=== PATIENT | female | born 1975 | race Caucasian/White ===

== ENCOUNTER → 2023-05-05 07:41 | Outpatient (REF) | payer BC, SELFPAY ==
[2023-05-05 08:22] LABS: % Basophils 0.3 % (0-2); % Eosinophils 1.5 % (0-6); % Immature Granulocytes 0.3 % (0-0.5); % Lymphocytes 18.1 % (20.5-51.1); % Monocytes 5.4 % (1.7-9.3); % Neutrophils 74.4 % (42.2-75.2); Absolute Eosinophils 0.1 10^3/uL (0-0.7); Absolute Lymphocytes 1.1 10^3/uL (1.2-3.4); Absolute Monocytes 0.3 10^3/uL (0.1-0.6); Absolute Neutrophils 4.5 10^3/uL (1.4-6.5); Hemoglobin 12.9 g/dL (12.0-16.0); Mean Corp Hgb Conc. 35.8 g/dL (33.0-37.0); Mean Corpuscular Hgb 29.3 pg (27.0-31.0); Mean Corpuscular Volume 81.8 fL (81.0-99.0); Mean Platelet Volume 9.4 fL (7.4-10.4); Nucleated Red Blood Cells % 0.3 %; Platelet Count 252 10^3/uL (130-400); White Blood Cell Count 6.1 10^3/uL (4.8-10.8)
[2023-05-05 09:09] LABS: ALT (SGPT) 29 U/L (0-35); AST (SGOT) 27 U/L (14-36); Albumin 3.9 g/dl (3.5-5.0); Alkaline Phosphatase 72 U/L (38-126); Blood Urea Nitrogen 15 mg/dl (7-17); Calcium 9.3 mg/dl (8.4-10.2); Carbon Dioxide 22 mmol/L (22-30); Chloride 104 mmol/L (98-107); Glucose 94 mg/dl (70-99); Sodium 137 mmol/L (135-145); Total Bilirubin 0.6 mg/dl (0.2-1.3); Total Protein 6.9 g/dl (6.3-8.2); eGFR > 60.00
[2023-05-06 15:23] LABS: Prealbumin (Transthyretin) 25.8 mg/dl (17.6-36.0)
[2023-05-06 15:33] LABS: Vitamin D, 25-OH*** 17.5 ng/mL (30-80)
== END ==
LOC: RCS 07:41
PROVIDERS: ATTENDING PHYSICIAN Surgery Plastic and Reconstructive Surgery; FAMILY PHYSICIAN Family Medicine
DX: Z01.818 Encounter for other preprocedural examination (principal)
CPT/HCPCS: 36415; 80053; 82306; 84134; 85025; 93005

== ENCOUNTER → 2023-05-06 16:12 | Outpatient (REF) | payer BC, SELFPAY | LOC: MRI 3T 16:12 | PROVIDERS: ATTENDING PHYSICIAN Surgery; FAMILY PHYSICIAN Family Medicine; REFERRING PHYSICIAN Nurse Practitioner Family | DX: C50.412 Malignant neoplasm of upper-outer quadrant of left female breast (principal) | CPT/HCPCS: 77049; A9585 ==

== ENCOUNTER → 2023-05-11 08:01 | Outpatient (REF) | payer BC, SELFPAY | LOC: WDC 08:01 | PROVIDERS: ATTENDING PHYSICIAN Surgery | DX: C50.412 Malignant neoplasm of upper-outer quadrant of left female breast (principal) | CPT/HCPCS: 38792; 76942; A9541 ==

== ENCOUNTER 2023-05-12 06:04 | Day surgery (SDC) | payer BC, SELFPAY ==
[2023-05-12] VITALS (17 sets, daily range): BP systolic 5–143; BP diastolic 62–86; BMI 31.8
[2023-05-12] MEDS: TYLENOL 1000 MG PO ×3 (06:45→23:36)
[2023-05-12] MEDS: NORMOSOL-R 1000 IV (06:45)
--- NOTE | 2023-05-12 14:32 | W.IMMPOSTOP ---
Surgical Immed Post Op Note
-
Primary Surgeon: GEORGE Calvin MD
Assisting Surgeon:
Pre-op Diagnosis: Left breast cancer
Post-op Diagnosis: Same
Procedure Performed: Bilateral immediate reconstruction with tissue expanders, ADM insertion, spy angiography
Anesthesia Type: General
Specimen / Cultures: Per Dr. Pereira
Estimated Blood Loss: 10 cc
Complications: None
Operative Findings: As expected, expanders inflated 150 cc
--- NOTE | 2023-05-12 14:37 | OR.RPT ---
Operative Report
Operative Report
Surgeon: GEORGE Calvin MD
Preoperative diagnosis: Left breast cancer
Postoperative diagnosis: Same
Procedure:
1. Bilateral immediate insertion of tissue expanders for breast reconstruction
2. Insertion of ADM mesh, bilateral
3. Spy angiography
Complications: None
Anesthesia: General
EBL: 10 cc
Indications for procedure: Patient is a 47-year-old female was recently diagnosed with a left-sided breast cancer. She was referred by Dr. Pereira for consideration of reconstructive options following a plan for bilateral mastectomy. On
consultation we discussed both autologous and implant-based breast reconstruction. She desired a staged approach to D IEP flap reconstruction. In this pattern we will place tissue steam conditioner filling at the time of mastectomy and return at a later date
following final pathology and determination for the need for adjuvant radiation therapy to form the definitive reconstruction via D IEP flap surgery. Risks of steam conditioner filling based reconstruction reviewed at length including hematoma, seroma, infection.
She understood these risk desired to proceed. Consents were signed accordingly.
Procedure in detail: Patient was identified in the preoperative area and the surgical site was confirmed with bilateral breast. All questions were answered and consents were confirmed. The patient was sat upright and the normal anatomical markings
were made. A plan was made for vertical pattern skin sparing mastectomy bilaterally. Patient was taken back to the operating placed upon table. She was prepped and draped in the usual sterile fashion following induction of anesthesia. ChloraPrep
was used bilaterally. Timeout for patient safety was performed and was confirmed that preoperative antibiotics administered and bilateral SCDs were placed. Dr. Pereira began the procedure by first performing a right-sided mastectomy. Her op
report will be dictated separately.
I entered the case the right mastectomy had been completed and Dr. Pereira was working on the left breast. I inspected the mastectomy defect on the right chest wall and ensured meticulous hemostasis. I measured the base width indeterminate 13 cm
steam conditioner filling would be appropriate. The wound was thoroughly irrigated. An 8 x 16 cm piece of core TIVA ADM was opened and rehydrated and Betadine solution. It was run through a mesher at a 1:3 ratio. This was then draped over the steam conditioner filling in a total
anterior coverage fashion. The steam conditioner filling was inflated with 150 cc normal saline and was then sutured on the chest wall using series of 2-0 silks. A series of 2-0 Vicryl's suspended the ADM construct over the steam conditioner filling. 2 Héctor drains were placed
with a long subcutaneous tunnel in the periaxillary line. Tentative closure was performed and the skin edges were sharply excised with a facelift scissor. Spy angiography was then performed to confirm adequate perfusion of the mastectomy skin
flaps. The wound was then closed in 3 layers with a series of 3-0 and 4-0 Monocryl sutures. The exact same procedure was then performed on the left side after the mastectomy and sentinel nodes were complete. 13 cm steam conditioner filling was opened and the
wound bed was checked for meticulous hemostasis and irrigated. An 8 x 16 sheet of ADM was meshed 1:3 ratio and draped in total anterior coverage fashion. Construct was then affixed to the chest wall using 2-0 silks. Spy angiography was performed
and 2 Héctor drains were placed with a long subcutaneous tunnel. Wound was closed in 3 layers with 3-0 and 4-0 Monocryl. Patient tolerated procedure well was performed out complication. All counts were correct at the end the case. She was
extubated taken the PACU for further care.
[2023-05-12] MEDS: DILAUDID 0.25 MG IV ×2 (15:58→16:15)
--- NOTE | 2023-05-12 17:15 | PTCARENOTE ---
Pt received from the PACU via bed. Pt is AAOx3, HRR, LCTA, resp. easy. Pt with dressings to b/l breast area C/D/I, with Hero drains X4 and Surgical Bra maintained. Pt denies nausea and denies pain at this time. Pt instructed on plan of care. Pt and
Pt's verbalized understanding of instructions.
[2023-05-12] MEDS: NEURONTIN PO (17:43)
[2023-05-12] MEDS: ANCEF 5 IV (20:48)
[2023-05-12] MEDS: NEURONTIN 100 MG PO (20:49)
[2023-05-12] MEDS: ULTRAM 100 MG PO (20:55)
[2023-05-12] MEDS: COZAAR 50 MG PO (21:29)
[2023-05-13 03:00] VITALS: BP 128/61
[2023-05-13] MEDS: ANCEF 5 IV (03:10)
[2023-05-13] MEDS: FLUSH (NSS) 2 FLUSH IV (03:11)
[2023-05-13] MEDS: TYLENOL 1000 MG PO (06:11)
[2023-05-13 06:15] LABS: Hematocrit 31.6 % (37.0-47.0); Hemoglobin 10.9 g/dL (12.0-16.0)
[2023-05-13 06:37] LABS: Blood Urea Nitrogen 12 mg/dl (7-17); Calcium 8.2 mg/dl (8.4-10.2); Carbon Dioxide 22 mmol/L (22-30); Chloride 104 mmol/L (98-107); Estimated Creatinine Clearance > 125 ml/min; Glucose 95 mg/dl (70-99); Potassium 3.9 mmol/L (3.5-5.1); Sodium 136 mmol/L (135-145); eGFR > 60.00
[2023-05-13 07:01] VITALS: BP 119/73
[2023-05-13] MEDS: COLACE 100 MG PO (08:08)
[2023-05-13] MEDS: NEURONTIN 100 MG PO (08:08)
--- NOTE | 2023-05-13 09:37 | W.PN.PLAS ---
Today's Communication
-
Discharge to home with [facility]
Progress Note
Subjective Data
Doing well, pain well-controlled
Objective Data
Vital Signs
Temp Pulse Resp BP Pulse Ox
98.7 F 75 17 119/73 94
05/13/23 07:01 05/13/23 07:01 05/13/23 07:01 05/13/23 07:01 05/13/23 07:01
Intake and Output
05/12/23 05/13/23 05/14/23
06:59 06:59 06:59
Intake Total 840 / 840
Output Total 895 / 895
Balance -55 / -55
Intake:
Oral fluids 340 / 340
IV fluids (Total) 500 / 500
Normosol 500 / 500
Output:
Drain Output (Total) 270 / 270
Left Haris-See C 30 / 30
Left Haris-See D 140 / 140
Right Haris-See A 40 / 40
Right Haris-See B 60 / 60
Urine, Voided 625 / 625
Other:
Number of approximated MODERATE 2
amounts of urine
Number of approximated LARGE 1
amounts of urine
Physical exam:
No acute distress
No increased work of breathing
Bilateral dressings in place
No obvious fluid collections
RACQUEL drain serosanguineous
Lab Results
05/13/23 04:41
05/13/23 04:41
Assessment / Plan
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
Regular diet
Home with [facility]
Drain management
Follow-up next week in office
P.o. pain meds, oral antibiotics
--- NOTE | 2023-05-13 10:35 | CM ---
Chart reviewed. Spoke with pt and at bedside
Lives in 2 story home with and 2 daughters
Independent, drives
No DME
No past VNA/SNF
Has ride at d/c
Discussed VNA - requesting [facility]
TT sent to liaison
PCP - Dr Irma Curtis
Pharm - [facility]
Plan - home with home services - [facility]
--- NOTE | 2023-05-13 11:54 | VNURNOTE ---
Home Health Liaison met with patient and spouse Roberto at 1115 to discuss [facility] nurse visits, schedule and homebound status. Patient is agreeable and understands that visits at home will be 2-3 x per week to assess and teach medical management and
RACQUEL drain care. Patient and spouse have had some RACQUEL drain teaching here.
[facility] brochure provided with contact information. Patient is aware that [facility] will contact them for start of care in 1-2 days after discharge from .
[facility] referral completed in [facility].
== END 2023-05-13 11:14 | disposition home or self-care (01) ==
LOC: SDS 06:04
PROVIDERS: ATTENDING PHYSICIAN Surgery; REFERRING PHYSICIAN Surgery Plastic and Reconstructive Surgery
DX: C50.412 Malignant neoplasm of upper-outer quadrant of left female breast (principal)
CPT/HCPCS: 19357; 38525; 19303; 15777; 15860; 88305; 88307; 88332; 80048; 85014; 85018; 88331; 88342; C1729; C1789; L8000; Q4100

== ENCOUNTER → 2023-05-25 13:36 | Outpatient (REF) | payer BC, SELFPAY | LOC: HWRAD 13:36 | PROVIDERS: ATTENDING PHYSICIAN Surgery Plastic and Reconstructive Surgery; FAMILY PHYSICIAN Family Medicine | DX: Z42.1 Encounter for breast reconstruction following mastectomy (principal) | CPT/HCPCS: 74174; Q9967 ==

== ENCOUNTER 2023-06-09 06:04 | Inpatient (IN) | payer BC, SELFPAY ==
--- NOTE | 2023-05-12 13:50 | W.IMMPOSTOP ---
Surgical Immed Post Op Note
-
Primary Surgeon: Kelli
Assisting Surgeon: None
Pre-op Diagnosis: Left breast ca
Post-op Diagnosis: Same
Procedure Performed: Bilateral mastectomies, left sentinel node mapping and biopsy
Anesthesia Type: GET
Specimen / Cultures: Bilateral breasts, left superior breast tissue, left sentinel nodes
Estimated Blood Loss: 50cc
Complications: None
Operative Findings: Neg sentinel nodes on frozen section
Kennan Node Bx Breast Cancer
Kennan Node Bx Breast Cancer
Operation performed with curative intent: Yes
Tracer(s) to ID Kennan Nodes in Non-Neoadjuvant setting: Radioactive Tracer
Tracer(s) to ID Sentinal Nodes in the Neoadjuvant Setting: N/A
All nodes at end of dye-filled Lymphatic Channel removed: N/A
All Significantly Radioactive Nodes were removed: N/A
All Palpably Suspicious Nodes were Removed: N/A
Bx Proven Pos Nodes Marked Prior to Chemo ID'd & Removed: N/A
[2023-06-09] VITALS (20 sets, daily range): BP systolic 122–146; BP diastolic 57–90; BMI 31.1
[2023-06-09] MEDS: LOVENOX 40 MG SC (06:58)
[2023-06-09] MEDS: NORMOSOL-R 1000 IV ×2 (07:18→18:00)
--- NOTE | 2023-06-09 17:46 | OR.RPT ---
Operative Report
Operative Report
Surgeon: Junito Chua MD
Co-surgeon: Obed Calvin MD
Oil Dispatcher: Celsa Pereira MD
Pre-op diagnosis:
1.� Personal history of breast cancer
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
Postop diagnosis: Same
Procedure:
1.� Removal of bilateral tissue expanders
2.� Bilateral partial capsulectomies and extensive capsulotomies
3.� Bilateral breast reconstruction with LON flaps
4.� Bilateral internal mammary lymph node biopsies
5. Spy angiography
Anesthesia: General
EBL: 150 cc
Specimens:
1.� Right mastectomy skin and soft tissue
2.� Left mastectomy skin and soft tissue
3.� Right internal mammary lymph node
4.� Left internal mammary lymph node
Drains: 4 - 15 [place] Héctor drains
Complications: none
Indications:
48-year-old female with a past medical history significant for breast cancer.� She has previously undergone bilateral mastectomies and placement of tissue expanders in the prepectoral plane.� She presented for the next stage of her breast
reconstruction.� She was interested in moving forward with autologous reconstruction. Given the anticipated bilateral LON flap breast reconstruction, I was asked to be involved in her care given the complexity of the case and the need for a
co-surgeon to do this as safely and efficiently as possible.
Regarding bilateral free flap breast reconstruction,� she understood the nature of the surgery and all of the risk benefits alternatives were discussed at length.� Specific risks included flap failure or thrombosis, hematoma, seroma, poor wound
healing and compromise to the abdominal wall.� All questions were answered and consents were signed.
Operative findings:
Patient was identified in the preoperative area and consents were confirmed. The bilateral breast revisions were marked out as was the elliptical infraumbilical donor site. All questions were answered. She was brought to the operating room and
placed supine on the operative table.� General anesthesia was induced with an endotracheal tube. The arms were tucked bilaterally and a Lopez catheter was placed.� Preoperative Lovenox and antibiotics were administered, and SCDs were placed.� The
patient's bilateral breasts and abdomen were prepped and draped in normal standard fashion using chlorhexidine prep.� A timeout for patient safety was performed.
We initiated the procedure as two separate teams, with one surgeon working in the abdomen while the other surgeon was in the chest. Please see Dr. Calvin's separately dictated operative note.
On the left side of the chest, the previous mastectomy scar was incised.� Electrocautery dissection was then performed to get down to the level of the implant capsule.� The capsule was then opened and the heavy duty diesel mechanic was then removed intact.� Partial
capsulectomies and extensive capsulotomies were performed for radial expansion.� Next, the internal mammary dissection was performed.� The muscle was split over the third intercostal rib and the cartilaginous portion of the rib was excised.� The
underlying internal mammary vessels were then meticulously and carefully dissected.� Once the vessels were fully dissected circumferentially these were allowed to dilate up while attention was turned to the contralateral breast.� A pectoralis block
was then performed with marcaine and a 15 [place] Héctor drain was placed through a stab incision the lateral IMF.� This was secured using a 2-0 Prolene suture.
The identical procedure was then performed on the patient's right side.� Again this involved removal of the intact tissue heavy duty diesel mechanic, partial capsulectomies and extensive capsulotomies, rib resection, and internal mammary vessel dissection.� These
vessels were similarly prepared and allowed to dilate up with papaverine soaked neuro patties.� A pectoralis block was similarly performed on this side and a 15 [place] Héctor drain was also placed through a stab incision in the lateral IMF on the
side.
Of note, internal mammary lymph nodes were noted on both sides. These were dissected out and sent off for pathologic evaluation.
In the abdomen, bilateral LON flaps were dissected out. This began with incising the proposed markings superiorly and dissection with a slight bevel upwards to the level of the fascia. Undermining of the supraumbilical flap continue in the midline
above the umbilicus. Laterally, this extend near but not all the way to the costal margin. The patient was then flexed at the waist and the lower incision was confirmed to be tenable without undue tension. The patient was returned supine and the
lower marking was incised with a 10 blade. SIEVs were encountered bilaterally and dissected. The flaps were then raised laterally to medially be sure to maintain the perforating vessels above the level of the fascia.� On the right side a 4
binding cutter synthetic cloth LON flap was dissected out.� Similarly on the left side a 4 binding cutter synthetic cloth LON flap had been dissected out.�This involved a tedious intramuscular dissection to minimize the amount of muscle harvested with the flap. The pedicles were
dissected down to level of the iliac vessels.
The right hemiabdominal flap was then transferred up to the left chest.� The microvascular anastomosis was then performed.� This was done using a 4.0 mm ring barker operator for the venous anastomosis.� The arterial anastomosis was performed with a handsewn
technique using 8-0 nylon suture.� Upon removal of the microvascular clamps there was excellent perfusion of the flap.� The flap was then temporarily inset with robert and attention was turned to the contralateral side.
The left hemiabdominal flap was then transferred up to the right chest.� The microvascular anastomosis was similarly performed.� On this side a 4.0 mm ring barker operator was again utilized for the venous anastomosis.� The arterial anastomosis was performed in
the same fashion as the contralateral side.� Again there was excellent perfusion noted upon removal of the vascular clamps.
While one surgeon was performing the microvascular anastomosis the other surgeon was performing the abdominal wall reconstruction.� This involved reapproximation of the muscles that was divided.� A small piece of Phasix mesh was inset as a underlay
with primary fascial closure.� The fascia was closed with a PDS stratafix sutures.�A midline abdominal plication was also peformed due to the patient's rectus diastasis.
A TAP block was performed bilaterally for postoperative analgesia.� Two 15 [place] Héctor drains were placed in the abdomen.� These were similarly secured using 2-0 Prolene sutures.� The abdominal wall was then closed in a layered fashion.� 2-0 Vicryl
suture was utilized in the Merlyn's fascia.� The Insorb dermal stapler was then utilized for reapproximation of the deep dermis.� The superficial skin was then closed using 4-0 Monocryl suture.� The umbilicus was transposed.� This was inset using a
combination of 3-0 Monocryl in the deep dermis and 5-0 nylon suture superficially.
The LON flaps were then debulked due to their excessive volume and inset. The breast skin was then revised.� As the LON flaps were inset the breast skin had to be revised for the location of the skin paddle.� This was done by sitting the patient
up and in assuring appropriate location of the tracy-areolar complex.� The breast skin was then excised bilaterally and sent off for pathologic evaluation.� The skin was then closed in a layered fashion using 3-0 and 4-0 Monocryl suture.� The LON
flaps were de-epithelialized in all areas that would not be exposed prior to closure.
Doppler signals were identified on both skin islands and there was good punctate bleeding at time of deepithelialization. Signals were marked with 5-0 prolenes.
The wounds were then all dressed and the patient was extubated uneventfully.� All counts were correct at the the completion of the case.� The patient tolerated the procedure very well.� She had an excellent cosmetic outcome.� The patient was then
transferred to the ICU for postoperative� monitoring.
Dr. Waldemar Calvin was my co-surgeon for this case.� His status as a co-surgeon was critical to allow us to function as two separate teams to maximize the safety and efficiency of this case for this patient.
Dr. Celsa Pereira was our payroll assistant for this case.� Her assistance was critical and medically necessary to allow us to perform this in a safe and timely manner for this patient.� She assisted with retraction, execution, and closure of this case.
--- NOTE | 2023-06-09 18:02 | W.IMMPOSTOP ---
Surgical Immed Post Op Note
-
Primary Surgeon: GEORGE Calvin MD
Assisting Surgeon:
Pre-op Diagnosis: History of breast cancer, surgically acquired absence of bilateral breasts
Post-op Diagnosis: Same
Procedure Performed: Bilateral delayed immediate D IEP flap reconstruction, spy angiography, removal of bilateral tissue expanders and capsulectomy
Anesthesia Type: General
Specimen / Cultures: Right breast seroma fluid
Estimated Blood Loss: 150 cc
Complications: None
Operative Findings: Routine micro, well-perfused flaps
--- NOTE | 2023-06-09 18:02 | W.SUR.PREOP ---
Pre-Operative Surgical Note
-
I have examined this patient prior to the performance of the scheduled procedure.
The patient's condition is unchanged from the time of the current History and
Physical and the patient is able to undergo the scheduled procedure.
--- NOTE | 2023-06-09 18:02 | OR.RPT ---
Operative Report
Operative Report
Surgeon: Obed Calvin MD
Co-surgeon: Junito Chua MD
[employer] Teacher: Cesla Pereira MD
Pre-op diagnosis:
1.� Personal history of breast cancer
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
Postop diagnosis: Same
Procedure:
1.� Removal of bilateral tissue expanders
2.� Bilateral partial capsulectomies and extensive capsulotomies
3.� Bilateral breast reconstruction with LON flaps
4.� Bilateral internal mammary lymph node biopsies
5.� Spy angiography
Anesthesia: General
EBL: 150 cc
Specimens:
1.� Right mastectomy skin and soft tissue
2.� Left mastectomy skin and soft tissue
3.� Right internal mammary lymph node
4.� Left internal mammary lymph node
Drains: 4 - 15 Latvian Héctor drains
Complications: none
Indications:
48-year-old female with a past medical history significant for breast cancer.� She has previously undergone bilateral mastectomies and placement of tissue expanders in the prepectoral plane.� She presented for the next stage of her breast
reconstruction.� She was interested in moving forward with autologous reconstruction. Given the anticipated bilateral LON flap breast reconstruction, I asked my co-surgeon Dr. Junito Chua to be involved in her care given the complexity of the case
and the need for a co-surgeon to do this as safely and efficiently as possible.
Regarding bilateral free flap breast reconstruction,� she understood the nature of the surgery and all of the risk benefits alternatives were discussed at length.� Specific risks included flap failure or thrombosis, hematoma, seroma, poor wound
healing and compromise to the abdominal wall.� All questions were answered and consents were signed.
Operative findings:
Patient was identified in the preoperative area and consents were confirmed. The bilateral breast revisions were marked out as was the elliptical infraumbilical donor site. All questions were answered. She was brought to the operating room and
placed supine on the operative table.� General anesthesia was induced with an endotracheal tube. The arms were tucked bilaterally and a Lopez catheter was placed.� Preoperative Lovenox and antibiotics were administered, and SCDs were placed.� The
patient's bilateral breasts and abdomen were prepped and draped in normal standard fashion using chlorhexidine prep.� A timeout for patient safety was performed.
We initiated the procedure as two separate teams, with one surgeon working in the abdomen while the other surgeon was in the chest. Please see Dr. Chua's separately dictated operative note.
On the left side of the chest, the previous mastectomy scar was incised.� Electrocautery dissection was then performed to get down to the level of the implant capsule.� The capsule was then opened and the tail puller was then removed intact.� Partial
capsulectomies and extensive capsulotomies were performed for radial expansion.� Next, the internal mammary dissection was performed.� The muscle was split over the third intercostal rib and the cartilaginous portion of the rib was excised.� The
underlying internal mammary vessels were then meticulously and carefully dissected.� Once the vessels were fully dissected circumferentially these were allowed to dilate up while attention was turned to the contralateral breast.� A pectoralis block
was then performed with marcaine and a 15 Latvian Héctor drain was placed through a stab incision the lateral IMF.� This was secured using a 2-0 Prolene suture.
The identical procedure was then performed on the patient's right side.� Again this involved removal of the intact tissue tail puller, partial capsulectomies and extensive capsulotomies, rib resection, and internal mammary vessel dissection.� These
vessels were similarly prepared and allowed to dilate up with papaverine soaked neuro patties.� A pectoralis block was similarly performed on this side and a 15 Latvian Héctor drain was also placed through a stab incision in the lateral IMF on the
side.
Of note, internal mammary lymph nodes were noted on both sides. These were dissected out and sent off for pathologic evaluation.
In the abdomen, bilateral LON flaps were dissected out. This began with incising the proposed markings superiorly and dissection with a slight bevel upwards to the level of the fascia. Undermining of the supraumbilical flap continue in the midline
above the umbilicus. Laterally, this extend near but not all the way to the costal margin. The patient was then flexed at the waist and the lower incision was confirmed to be tenable without undue tension. The patient was returned supine and the
lower marking was incised with a 10 blade. SIEVs were encountered bilaterally and dissected. The flaps were then raised laterally to medially be sure to maintain the perforating vessels above the level of the fascia.� On the right side a 4
sewer pipe cleaner LON flap was dissected out.� Similarly on the left side a 4 sewer pipe cleaner LON flap had been dissected out.�This involved a tedious intramuscular dissection to minimize the amount of muscle harvested with the flap. The pedicles were
dissected down to level of the iliac vessels.
The right hemiabdominal flap was then transferred up to the left chest.� The microvascular anastomosis was then performed.� This was done using a 4.0 mm proration clerk for the venous anastomosis.� The arterial anastomosis was performed with a handsewn
technique using 8-0 nylon suture.� Upon removal of the microvascular clamps there was excellent perfusion of the flap.� The flap was then temporarily inset with robert and attention was turned to the contralateral side.
The left hemiabdominal flap was then transferred up to the right chest.� The microvascular anastomosis was similarly performed.� On this side a 4.0 mm proration clerk was again utilized for the venous anastomosis.� The arterial anastomosis was performed in
the same fashion as the contralateral side.� Again there was excellent perfusion noted upon removal of the vascular clamps.
While one surgeon was performing the microvascular anastomosis the other surgeon was performing the abdominal wall reconstruction.� This involved reapproximation of the muscles that was divided.� A small piece of Phasix mesh was inset as a underlay
with primary fascial closure.� The fascia was closed with a PDS stratafix sutures.�A midline abdominal plication was also performed due to the patient's rectus diastasis.
A TAP block was performed bilaterally for postoperative analgesia.� Two 15 Latvian Héctor drains were placed in the abdomen.� These were similarly secured using 2-0 Prolene sutures.� The abdominal wall was then closed in a layered fashion.� 2-0 Vicryl
suture was utilized in the Merlyn's fascia.� The Insorb dermal stapler was then utilized for reapproximation of the deep dermis.� The superficial skin was then closed using 4-0 Monocryl suture.� The umbilicus was transposed.� This was inset using a
combination of 3-0 Monocryl in the deep dermis and 5-0 nylon suture superficially.
The LON flaps were then debulked due to their excessive volume and inset. The breast skin was then revised.� As the LON flaps were inset the breast skin had to be revised for the location of the skin paddle.� This was done by sitting the patient
up and in assuring appropriate location of the tracy-areolar complex.� The breast skin was then excised bilaterally and sent off for pathologic evaluation.� The skin was then closed in a layered fashion using 3-0 and 4-0 Monocryl suture.� The LON
flaps were de-epithelialized in all areas that would not be exposed prior to closure.
Doppler signals were identified on both skin islands and there was good punctate bleeding at time of deepithelialization. Signals were marked with 5-0 prolenes.
The wounds were then all dressed and the patient was extubated uneventfully.� All counts were correct at the the completion of the case.� The patient tolerated the procedure very well.� She had an excellent cosmetic outcome.� The patient was then
transferred to the ICU for postoperative� monitoring.
Dr. Junito Chua was my co-surgeon for this case.� His status as a co-surgeon was critical to allow us to function as two separate teams to maximize the safety and efficiency of this case for this patient.
Dr. Celsa Pereira was our care assistant for this case.� Her assistance was critical and medically necessary to allow us to perform this in a safe and timely manner for this patient.� She assisted with retraction, execution, and closure of this case.
[2023-06-09] MEDS: DILAUDID 0.5 MG IV (18:33)
[2023-06-09] MEDS: TORADOL 15 MG IV (18:55)
--- NOTE | 2023-06-09 18:55 | PTCARENOTE ---
Rec'd pt at 1800 via bed directly back from the OR s/p bilateral LON procedure. Report received from OR staff. Rec'd pt drowsy but arousable. SIMMS. Speech is slow but clear. Admitted to 8/10 lower abd pain. Medicated at 1835 with Dilaudid 0.5 mg IV
and easing currently. Skin is pale pink wm and dry, Molina Hugger placed on medium setting on pt at 1820. Temp 97.8 Respirs are sl shallow but non-labored on 6l facemask with sats of 97%. BS are decreased throughout. Monitor SR. + pulses. Tr LE edema.
KH SCD's in place. VS as documented. ABd is round and soft with few hypoactive BS. No c/o nausea. ABd binder in place. Lopez intact for yellow urine. IV fluids Normosol currently via R hand #20 IV site. Will policy change clerk to LR at 125 ml/hr. Capped
#18 int intact R wrist. R and L breasts with soft swelling. Bilateral skin paddles are pale pink-'skin color' per who was in to see pt as well as Dr Calvin and Kelli. Paddles with refill <2 seconds. + doppler signals R signal weaker then
the L but both present. Paddles sl cool initally but warmer after Molina Hugger applied. Bilateral lower breast incisions approximated with surgical adhesive-no drainage. ABd over. Lower abd incison approximated with surgical adhesive present. No
drainage. R and L lower breast RACQUEL drains to bulb suction with sang drainage. R and L lower abd RACQUEL drains to bulb suction also draining sang drainage. Pt in Beach chair position. Call luis in reach. Plan of care reviewed with pt. Pulse and paddle
checks completed with oncoming shift.
[2023-06-09] MEDS: LR 1000 IV (18:56)
--- NOTE | 2023-06-09 19:00 | PTCARENOTE ---
ICU labs sent
[2023-06-09 19:14] LABS: Hematocrit 26.3 % (37.0-47.0); Hemoglobin 9.4 g/dL (12.0-16.0); Mean Corp Hgb Conc. 35.7 g/dL (33.0-37.0); Mean Corpuscular Volume 81.2 fL (81.0-99.0); Mean Platelet Volume 9.2 fL (7.4-10.4); Platelet Count 263 10^3/uL (130-400); Red Blood Cell Count 3.24 10^6/uL (4.20-5.40); Red Cell Dist. Width 12.1 % (11.5-14.5); White Blood Cell Count 6.6 10^3/uL (4.8-10.8)
[2023-06-09 19:25] LABS: INR 1.07
[2023-06-09 19:26] LABS: APTT 34.8 Sec (23.4-35.0)
[2023-06-09 19:28] LABS: ALT (SGPT) 22 U/L (0-35); AST (SGOT) 27 U/L (14-36); Albumin 3.6 g/dl (3.5-5.0); Alkaline Phosphatase 92 U/L (38-126); Blood Urea Nitrogen 11 mg/dl (7-17); Calcium 7.5 mg/dl (8.4-10.2); Carbon Dioxide 25 mmol/L (22-30); Chloride 102 mmol/L (98-107); Estimated Creatinine Clearance > 125 ml/min; Glucose 145 mg/dl (70-99); Potassium 4.2 mmol/L (3.5-5.1); Sodium 136 mmol/L (135-145); Total Bilirubin 0.4 mg/dl (0.2-1.3); Total Protein 6.2 g/dl (6.3-8.2); eGFR > 60.00
--- NOTE | 2023-06-09 21:15 | PTCARENOTE ---
~[id number]: Handoff report received from off goingRN. Dual RN breast paddle assessment completed. Pt's right breast flap doppler pulse is weak to medium and left breast flap doppler pulse is good. Flap sight is cool to the touch, pale to skin color.
Color okay with per off going RN. <2 capillary refill. Bilateral breast and abdominal RACQUEL drains to bulb suction and draining small amount of sanguineous output.Abd pads in place. Lower abdominal incision is approximated and with surgical adhesive
and abd pads. Molina hugger is set to medium. Plan of care for the shift reviewed with the patient. Sinus rhythm on the monitor. SpO2 at 98% on 6L simple mask o2. Diminished breast sounds. Abdomen is soft and round. Hypoactive BS. Abdominal binder in
place. Lopez catheter draining yellow uop. SCDs are in place.
2014- Patient placed on 6L O2 nasal cannula. SpO2 at 98%.
~2044: Pt's spouse, Roberto at the bedside.
[2023-06-09] MEDS: TYLENOL 1000 MG PO (22:00)
[2023-06-10] VITALS (26 sets, daily range): BP systolic 120–173; BP diastolic 60–91; BMI 31.5
[2023-06-10] MEDS: TORADOL 15 MG IV ×4 (00:04→17:16)
[2023-06-10] MEDS: ANCEF 10 IV ×3 (00:04→17:00)
[2023-06-10] MEDS: NEURONTIN 300 MG PO ×3 (00:04→17:00)
--- NOTE | 2023-06-10 00:51 | PTCARENOTE ---
Patient reassessed. Remains AAOx3 and drowsy. Breast paddle assessment as documented. Pt weaned off oxygen and SpO2 97% on room air. RACQUEL drains stripped and emptied. Sanguinous output. No further changes from previous assessment.
[2023-06-10] MEDS: LR 1000 IV (02:49)
[2023-06-10 03:51] LABS: Hematocrit 24.5 % (37.0-47.0); Hemoglobin 8.5 g/dL (12.0-16.0)
[2023-06-10 04:22] LABS: Blood Urea Nitrogen 12 mg/dl (7-17); Calcium 7.4 mg/dl (8.4-10.2); Carbon Dioxide 23 mmol/L (22-30); Chloride 106 mmol/L (98-107); Estimated Creatinine Clearance > 125 ml/min; Glucose 104 mg/dl (70-99); Potassium 3.9 mmol/L (3.5-5.1); Sodium 134 mmol/L (135-145); eGFR > 60.00
[2023-06-10] MEDS: CALCIUM GLUCONATE 100 IV (05:12)
--- NOTE | 2023-06-10 05:17 | PTCARENOTE ---
Patient reassessed. Pt receiving calcium gluconate for calcium 7.4.
VSS. Breast paddle assessment as document. No changes from previous assessment.
--- NOTE | 2023-06-10 06:00 | PTCARENOTE ---
pt's SpO2 91% on RA while asleep. placed on 2L/o2 nc. Spo2 97%.
--- NOTE | 2023-06-10 07:15 | CON.INTV ---
Consultation
Consultation Request
Date/Time Consultation Requested: 06/09/23
Date/Time Consultation Performed: 06/10/23
Performing Provider: Leonard
Medical History
-
History of Present Illness:
Patient is a 48-year-old female with previous history of left breast cancer status post bilateral mastectomies presenting for elective breast reconstruction. Underwent reconstruction with flap 06/09/2023 and postoperatively admitted to ICU for
frequent vascular monitoring of transplant. Perioperative course noted to be routine, not currently on pressors.
Past Medical History
Past Medical History: Other (see list below)
Social History
Tobacco: Non-smoker
Alcohol: None
Drug: None
Family History
Family History: Reviewed & Not Pertinent
Allergies / Home Medications
Allergies
Allergy/AdvReac Type Severity Reaction Status Date / Time
No Known Allergies Allergy Verified 06/09/23 07:01
Home Medications
Medication Instructions Recorded Confirmed Last Taken Type
losartan 50 mg tablet 50 mg PO HS Blood Pressure 05/10/23 06/09/23 06/08/23 19:00 History
oxcarbazepine 150 mg 150 mg PO HS Bipolar Disorder 05/10/23 06/09/23 06/07/23 History
tablet,extended release 24 hr
tirzepatide 2.5 mg/0.5 mL 2.5 mg SC QWEEK 05/10/23 06/09/23 04/29/23 History
subcutaneous pen injector
(Mounjaro)
acetaminophen 500 mg tablet (Pain 1,000 mg PO Q6 #90 tabs 05/13/23 06/09/23 06/08/23 19:00 Rx
Relief Extra Strength
(acetaminophen))
cefadroxil 500 mg capsule 500 mg PO BID #42 caps 05/13/23 06/09/23 06/08/23 19:00 Rx
gabapentin 100 mg capsule 100 mg PO TID 90 days #270 caps 05/13/23 06/09/23 06/08/23 19:00 Rx
Review of Systems
Vitals / Labs / Diagnostic Testing
Vital Signs
Temp Pulse Resp BP Pulse Ox
98.9 F 89 14 134/67 94
06/10/23 06:00 06/10/23 06:15 06/10/23 06:15 06/10/23 06:00 06/10/23 06:15
Lab Data
06/10/23 03:28
06/10/23 03:28
Laboratory Results
06/09/23
19:04
PT 14.0
INR 1.07
APTT 34.8
Microbiology
06/09/23 12:30 Breast - Right Gram Stain - Preliminary
Diagnostic Testing:
Physical Exam
-
HEENT: Normocephalic, Anicteric and Moist Mucous Membranes
Cardiovascular: S1/S2 and Regular Rhythm
Respiratory: Clear, Non-Labored Respirations and Other (chest tenderness at area of reconstruction)
GI: Soft, Non Distended and Tender
Neurology: Awake, Alert, Oriented, AO x 3 and No Motor Deficits
Skin: Warm, Dry and Good Color
General: Comfortable and Other (NAD)
Assessment
-
Patient is a 48-year-old female with previous history of left breast cancer status post bilateral mastectomies presenting for elective breast reconstruction. Underwent reconstruction with flap 06/09/2023 and postoperatively admitted to ICU for
frequent vascular monitoring of transplant.
Elective breast reconstruction s/p Removal of bilateral tissue expanders; Bilateral partial capsulectomies and extensive capsulotomies; Bilateral breast reconstruction with LON flaps
Bilateral internal mammary lymph node biopsies Dr Calvin 06/10/23
Postop anemia
Postop atelectasis
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
Malignant neoplasm of L breast
�ILC G2 [id number] ER/CT positive HER2 neg Ki-67 5%
s/p bilateral mastectomies, left sentinel lymph node mapping and biopsy and reconstruction with Dr. Calvin 05/12/23
Obesity BMI 31.5
HTN
Plan
S/p breast reconstruction by plastic surgery POD #1
Observe overnight following procedure
Follow CBC, neurovascular checks
Follow q1 blood flow monitoring to flap--requiring intensive monitoring post procedure
Notify surgical team if compromised
Avoid pressors
Bolus IVFs for hypotension
Pain control via CLAIMS SERVICE ADJUSTOR
Encouraged patient use prior to movement/PT
No prior h/o lung disease, nonsmoker
CXR with no acute disease/postop atelectasis noted
Encouraged IS, sats are stable on room air
Restart diet per protocol/advance as tolerated
GI ppx if indicated/history of GERD
DVT ppx held, SCDs
Creat at baseline, follow UO
No signs/symptoms suspicious for infectious etiology at this time.
Periop abx on board
Can likely observe off antibiotics if no longer indicated
Encourage OOB, early mobility
PT/OT
Incentive spirometer encouraged to prevent postoperative atelectasis
DVT ppx as indicated postop
SCDs
Monitor 48 hours, frequent vascular checks
If doing well, can transfer to floors with approval by primary team.
Diagnostic Data
Chest X-Ray: 06/10/23- Left basilar subsegmental atelectasis.
CT Scan: AP lung windows- LOWER CHEST: Lung bases clear. No pleural effusion. Partially imaged expanded within the inferior right chest wall with some surrounding fluid.
Echo:
PFT's:
Reports and relevant images were personally reviewed.
-----
Critical Care time 50 mins -- The patient is admitted for acute critical illness for the treatment of vital organ failure and/or prevention of further life-threatening conditions. Total care includes time spent in review of history, physical exam,
medications, hemodynamic/ventilator parameters, laboratory data, imaging and discussion with house staff, pharmacy, respiratory therapy, fire claims adjuster, and nursing.
[2023-06-10] MEDS: TYLENOL 1000 MG PO ×4 (08:22→21:16)
[2023-06-10] MEDS: COLACE 100 MG PO ×3 (08:22→21:11)
[2023-06-10] MEDS: SENOKOT 8.59999999999999964 MG PO ×2 (08:22→21:11)
--- NOTE | 2023-06-10 09:00 | PTCARENOTE ---
Rec'd pt at 0730 sleeping. Easily awakened and is alert and oriented. Overall states she was able to sleep and is very comfortable. SIMMS. Speech is clear. Skin is pale pink wm and dry. Molina Hugger in place set on medium. Beach chair position
maintained in bed. Respirs are unlabored initallly on 2l nc with sats of 97%- changed to RA at 0830 with sats of 95%. BS are decreased at the bases. Using IS and getting 1500 mls. Monitor SR. + pulses. Tr LE edema. KH SCD's in place. ABd is sl
tender to palp with hypoactive BS. Denies nausea. Lopez intact for yellow urine- amts as noted. Bilateral breast incisions are approximated with no drainage. Surgical adhesive present with dry ABD lying over incisions. R breast with some ecchymosis
of breast tissue and sl ecchymosis of breast paddle. + doppler signal and breast/paddle is warm. L breast tissue is pink. Paddle is pink and warm with + doppler signal. Both breasts are softly swollen. Transverse lower abd incision is approximated
with surgical adhesive and dry abd's lying over. Umbilical incison also approximated with dry abd. ABD binder in place. Bilateral lower breast and bilateral Lower abd RACQUEL drains to bulb suction. Stripped and reactivated per md order. Draining
sang-serosang drainage. Amts as documented. IV LR infusing via R hand IV site at 125 mls/hr. Capped int intact R wrist. Both sites wnl. Pt repositioned and ready to eat clear liquid breakfast. Call luis in reach and plan of care reviewed with pt.
--- NOTE | 2023-06-10 09:40 | PTCARENOTE ---
Dr. Calvin in to see pt and updated. Plan of care for the day reviewed. Good appetite for breakfast. No nausea.
[2023-06-10] MEDS: ULTRAM 100 MG PO ×2 (10:45→18:14)
--- NOTE | 2023-06-10 11:10 | PTCARENOTE ---
Pt resting this morning. Overall states she feels good although did admit to 5/10 bilat breast soreness. Flap and breast checks as documented and unchanged. Medicated with Tramadol 100 mg po in anticipation of getting oob. VS as documented. Complete
CHG bath given. Ruby care given and then enamorado dc'd per md order at 1100 . IV fluids capped currently as current bag has finished. Molina Hugger removed at [address] Nikunj nuñez to remove and just use blankets. RACQUEL drains with serosang drainage. Pt
then assisted oob to the chair maintaining beach chair position. Call luis in reach. at the bedside. Lunch ordered. Will continue to monitor
--- NOTE | 2023-06-10 11:17 | CM ---
CM following re: discharge planning.
Discussed in Rounds, reviewed pt's chart, met with pt and pt's Khari at bedside.
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
Pt reports she lives with in a 2SH, 2 steps to enter, has 2 supportive children. 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 No DME, VN or SNF history. Pt reports she had [facility] visits in the past and she asked to resume [facility] RN
visits upon the discharge.
CM consult to arrange VN services with a request to have RN visit next day of discharge is noted. Pt referred to [facility], spoke to [facility] liaison and she is aware of the requested RN visit next day of discharge.
PCP: Leodan Curtis
Pharmacy: [facility].
D/C plan: home with [facility] RN visit next day of discharge and family support. to transport at discharge.
CM will follow with discharge plan updates as hospitalization progresses
[2023-06-10] MEDS: FLUSH (NSS) 1 FLUSH IV (12:45)
--- NOTE | 2023-06-10 13:30 | PTCARENOTE ---
Good appetite for lunch. No c/o nausea. States she feels comfortable. States earlier Tramadol helped the breast soreness. VS as documented. Denies need to void yet. R breast paddle with slightly more ecchymosis but paddle is warm with a good signal.
R breast with some ecchymosis and a small amt on the L breast. Dr. Palacios updated in general on pt. Will continue to monitor
[2023-06-10] MEDS: LR IV (13:41)
--- NOTE | 2023-06-10 14:18 | W.PN.PLAS ---
Today's Communication
-
Flap Pathway POD1
Progress Note
Subjective Data
Doing well, pain well-controlled, denies shortness of breath
Objective Data
Vital Signs
Temp Pulse Resp BP Pulse Ox
99.7 F 93 18 142/76 95
06/10/23 11:32 06/10/23 12:00 06/10/23 12:00 06/10/23 12:00 06/10/23 12:00
Intake and Output
06/09/23 06/10/23 06/11/23
06:59 06:59 06:59
Intake Total 2025 / 2150 1625 / 1625
Output Total 1619 / 1654 480 / 480
Balance 406 / 496 1145 / 1145
Intake:
Oral fluids 450 / 450 1000 / 1000
IV fluids (Total) 1475 / 1600 625 / 625
Lr 1,000 ml @ 125 mls/hr IV . 1375 / 1500 625 / 625
Q8H [facility] Rx#:[id number]
Normosol 100 / 100
IV piggybacks 100 / 100
Output:
Drain Output (Total) 230 / 230 75 / 75
Left Lower Abdomen B 30 / 30 15 / 15
Left Lower Breast A 95 / 95 20 / 20
Right Lower Abdomen D 60 / 60 15 / 15
Right Lower Breast C 45 / 45 25 / 25
Urine, Lopez 1389 / 1424 405 / 405
Physical exam:
No acute distress
No increased work of breathing
Bilateral breast flaps warm and well-perfused in appearance
Doppler signals intact arterial and venous bilaterally
Appropriate cap refill no evidence of venous congestion
Routine incisional healing
RACQUEL drain serosanguineous with appropriate output
Lab Results
06/10/23 03:28
06/10/23 03:28
Microbiology Results
06/09/23 12:30 Breast - Right Anaerobic Culture - Preliminary
Culture pending. Anaerobic cultures are examined after 3
days incubation. Additional information to follow.
06/09/23 12:30 Breast - Right Wound Culture - Preliminary
No growth
06/09/23 12:30 Breast - Right Gram Stain - Preliminary
Assessment / Plan
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
Lopez out
Multimodal oral pain control
Regular diet
Lovenox/SCDs
Out of bed to chair
--- NOTE | 2023-06-10 15:00 | PTCARENOTE ---
Assisted back to bed. Tolerated being oob well. Breast sites unchanged. R breast overall is more swollen than the left. Dr Calvin aware and expected. Voided yellow urine on the commode. Will continue to monitor.
--- NOTE | 2023-06-10 16:04 | VNURNOTE ---
Home Health Liaison met with patient at 1500 to discuss [facility] nurse visits, schedule and homebound status. Patient is agreeable and understands that visits at home will be 2-3 x per week to assess and teach medical management and drain care.
[facility] brochure provided with contact information. Patient is aware that [facility] will contact her for start of care in 1-2 days after discharge from .
[facility] referral completed in Care Port
[2023-06-10] MEDS: LOVENOX 40 MG SC (17:16)
--- NOTE | 2023-06-10 20:00 | PTCARENOTE ---
brim presser, pt aao x 3, SIMMS, + doppler to breast paddles, q1 hr checks continue- full documentation per work list. RACQUEL drains x 4 WNL. SR HR 90s, RA Sat 96%. RA IV x 2 patent, no gtt infusing. POC discussed, call luis with patient.
[2023-06-10] MEDS: COZAAR 50 MG PO (21:11)
[2023-06-10] MEDS: TRILEPTAL 150 MG PO (21:12)
[2023-06-11] VITALS (26 sets, daily range): BP systolic 107–166; BP diastolic 67–98; PULSE 100; O2SAT 95; BMI 31.6
--- NOTE | 2023-06-11 | PTCARENOTE ---
Reassessed, ax1 to commode, q1 doppler breast checks unchanged, pt has some discomfort with movement- midnight meds given, no changes.
[2023-06-11] MEDS: TORADOL 15 MG IV ×4 (00:24→23:55)
[2023-06-11] MEDS: NEURONTIN 300 MG PO ×4 (00:24→23:57)
[2023-06-11] MEDS: ULTRAM 100 MG PO ×3 (01:08→16:30)
--- NOTE | 2023-06-11 04:00 | PTCARENOTE ---
no changes in patient assessment.
[2023-06-11] MEDS: TORADOL IV (05:45)
[2023-06-11 06:06] LABS: Hematocrit 25.4 % (37.0-47.0); Hemoglobin 8.9 g/dL (12.0-16.0); Mean Corpuscular Volume 82.7 fL (81.0-99.0); Platelet Count 256 10^3/uL (130-400); Red Blood Cell Count 3.07 10^6/uL (4.20-5.40); Red Cell Dist. Width 12.2 % (11.5-14.5); White Blood Cell Count 7.1 10^3/uL (4.8-10.8)
[2023-06-11 06:39] LABS: Blood Urea Nitrogen 13 mg/dl (7-17); Calcium 8.1 mg/dl (8.4-10.2); Carbon Dioxide 24 mmol/L (22-30); Chloride 101 mmol/L (98-107); Estimated Creatinine Clearance > 125 ml/min; Glucose 105 mg/dl (70-99); Potassium 3.9 mmol/L (3.5-5.1); Sodium 134 mmol/L (135-145); eGFR > 60.00
--- NOTE | 2023-06-11 07:13 | W.PN.INTV ---
Today's Communication / Plan
Recommendations
doing well postop
continue q1 vascular monitoring
diet advanced, PT/OT as able
discharge planning likely in AM
Assessment
-
Patient is a 48-year-old female with previous history of left breast cancer status post bilateral mastectomies presenting for elective breast reconstruction. Underwent reconstruction with flap 06/09/2023 and postoperatively admitted to ICU for
frequent vascular monitoring of transplant.
Elective breast reconstruction s/p Removal of bilateral tissue expanders; Bilateral partial capsulectomies and extensive capsulotomies; Bilateral breast reconstruction with LON flaps
Bilateral internal mammary lymph node biopsies Dr Calvin 06/10/23
Postop anemia
Postop atelectasis
Conditions present [employer]
Malignant neoplasm of L breast
�ILC G2 [id number] ER/AZ positive HER2 neg Ki-67 5%
s/p bilateral mastectomies, left sentinel lymph node mapping and biopsy and reconstruction with Dr. Calvin 05/12/23
Obesity BMI 31.5
HTN
Plan
S/p breast reconstruction by plastic surgery POD #2
Observe overnight following procedure
Follow CBC, neurovascular checks
Follow q1 blood flow monitoring to flap--requiring intensive monitoring post procedure
Notify surgical team if compromised
Avoid pressors
Bolus IVFs for hypotension
Pain control via GRIEVANCE AND APPEALS COORDINATOR
Encouraged patient use prior to movement/PT
No prior h/o lung disease, nonsmoker
CXR with no acute disease/postop atelectasis noted
Encouraged IS, sats are stable on room air
Restart diet per protocol/advance as tolerated
GI ppx if indicated/history of GERD
DVT ppx held, SCDs
Creat at baseline, follow UO
No signs/symptoms suspicious for infectious etiology at this time.
Periop abx on board
Can likely observe off antibiotics if no longer indicated
Encourage OOB, early mobility
PT/OT
Incentive spirometer encouraged to prevent postoperative atelectasis
DVT ppx as indicated postop
SCDs
Monitor 48 hours, frequent vascular checks
If doing well, can likely discharge tomorrow
Diagnostic Data
Chest X-Ray: 06/10/23- Left basilar subsegmental atelectasis.
CT Scan: AP lung windows- LOWER CHEST: Lung bases clear. No pleural effusion. Partially imaged expanded within the inferior right chest wall with some surrounding fluid.
Echo:
PFT's:
Reports and relevant images were personally reviewed.
-----
Critical Care time 32 mins -- The patient is admitted for acute critical illness for the treatment of vital organ failure and/or prevention of further life-threatening conditions. Total care includes time spent in review of history, physical exam,
medications, hemodynamic/ventilator parameters, laboratory data, imaging and discussion with house staff, pharmacy, respiratory therapy, front facer, and nursing.
Subjective Dataa
Subjective Data
Date of Service:
Date of Service: June 11, 2023
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
Subjective:
doing well post procedure, no new complaints
pain controlled
Objective Data
Data Reviewed
Vital Signs / I&O / Oxygen:
Vital Signs
Temp Pulse Resp BP Pulse Ox
99.9 F 108 19 166/83 93
06/11/23 04:00 06/11/23 06:30 06/11/23 06:30 06/11/23 06:01 06/11/23 06:30
Intake and Output
06/10/23 06/11/23 06/12/23
06:59 06:59 06:59
Intake Total 2024 / 2149 2605 / 2605
Output Total 1619 / 1654 1798 / 1798
Balance 406 / 496 807 / 807
SaO2 93
Nasal Cannula flow liters per 2
minute
Physical Exam
General: Comfortable and Other (NAD)
HEENT: Normocephalic, Anicteric and Moist Mucous Membranes
Cardiovascular: S1-S2 and Regular Rhythm
Respiratory: Clear and Non-Labored Respirations
GI: Soft, Non Distended and Tender (at incision)
Neurology: Awake, Alert, Oriented, AO x 3 and No Motor Deficits
Skin: Warm, Dry and Good Color
Labs/Micro/Reports
Lab Data
06/11/23 05:37
06/11/23 05:37
Microbiology
06/09/23 12:30 Breast - Right Anaerobic Culture - Preliminary
Culture pending. Anaerobic cultures are examined after 3
days incubation. Additional information to follow.
06/09/23 12:30 Breast - Right Wound Culture - Preliminary
No growth
06/09/23 12:30 Breast - Right Gram Stain - Preliminary
[2023-06-11] MEDS: TYLENOL 1000 MG PO ×4 (08:59→22:00)
[2023-06-11] MEDS: SENOKOT 8.59999999999999964 MG PO ×2 (08:59→20:10)
[2023-06-11] MEDS: COLACE 100 MG PO ×3 (08:59→22:01)
--- NOTE | 2023-06-11 09:00 | W.PN.PLAS ---
Today's Communication
-
Free flap pathway postop day 2
Progress Note
Subjective Data
Doing well denies shortness of breath, pain well-controlled
Subjective: Tolerating Regular Diet, Ambulatory and Lopez Removed
Objective Data
Vital Signs
Temp Pulse Resp BP Pulse Ox
98.1 F 98 18 156/93 96
06/12/23 07:52 06/12/23 06:00 06/12/23 06:00 06/12/23 06:00 06/12/23 06:00
Intake and Output
06/11/23 06/12/23 06/13/23
06:59 06:59 07:59
Intake Total 2605 / 2605 1400 / 1400
Output Total 1798 / 1798 758 / 758
Balance 807 / 807 642 / 642
Intake:
Oral fluids 1780 / 1780 1400 / 1400
IV fluids (Total) 625 / 625
Lr 1,000 ml @ 125 mls/hr IV . 625 / 625
Q8H [facility] Rx#:[id number]
IV piggybacks 200 / 200
Output:
Drain Output (Total) 368 / 368 208 / 208
Left Lower Abdomen B 65 / 65 42 / 42
Left Lower Breast A 120 / 120 65 / 65
Right Lower Abdomen D 150 / 150 90 / 90
Right Lower Breast C 33 / 33 11 / 11
Urine, Lopez 405 / 405
Urine, Voided 1025 / 1025 550 / 550
Other:
Number of approximated MODERATE 1
amounts of urine
Number of approximated LARGE 1
amounts of urine
Physical exam:
No acute distress
No increased work of breathing
Bilateral breast flaps warm and well-perfused in appearance
Doppler signals intact arterial and venous bilaterally
Appropriate cap refill no evidence of venous congestion
Routine incisional healing
RACQUEL drain serosanguineous with appropriate output
Lab Results
06/12/23 03:09
06/12/23 03:09
Microbiology Results
06/09/23 12:30 Breast - Right Anaerobic Culture - Preliminary
Culture pending. Anaerobic cultures are examined after 3
days incubation. Additional information to follow.
06/09/23 12:30 Breast - Right Wound Culture - Preliminary
No growth
06/09/23 12:30 Breast - Right Gram Stain - Preliminary
Assessment / Plan
Status post bilateral tissue director of agronomy removal with delayed immediate LON flap reconstruction of the bilateral breasts, history of breast cancer
Anemia secondary to hemodilution and postsurgical blood loss. No evidence of ongoing bleeding.
Lopez out
Multimodal oral pain control
Regular diet
Lovenox/SCDs
Out of bed to ambulate
PT OT
Continue every hour flap checks for 48 hours postop
--- NOTE | 2023-06-11 09:00 | PTCARENOTE ---
Rec'd pt at 0700- -Breast flap checks completed with offgoing nurse. Rec'd pt awake alert oriented and very pleasant. States overall she feels good but did admit to headache and 3-4/10 breast soreness. Medicated at 0720 with Tramadol 100 mg po with
some relief. Speech is clear. SIMMS. Beach chair position maintained and pt aware of positioning restricitons. Skin is pink wm and dry. Respirs are unlabored on RA with sats of 94%. BS are sl decreased at the bases. Encouraged to use IS-getting about
1500. No cough noted. Monitor ST 105-108 range. + pulses. BP as documented.-OK to use R arm. Tr LE Edema. KH SCD's in place. ABd is round and soft. Pt does admit to feeling a little bloated as she states she has not moved her bowels yet. Voiding
yellow urine on the commode. Bilateral lower breast RACQUEL drains and Bilateral lower abd drains to bulb suction. Stripped per orders and draining serosang drainage. Breasts- R breast remains sl more swollen than the L but both are soft and pink. Sl
bruising. Breast paddles are pink and warm bilaterally with refill <2 sec. Good doppler signals. Bilateral lower breast and lower abd incisons are all approximated with ABD's lying over. No drainage. ABD binder in place. Capped ints intact R wrist
and R hand. Pt assisted oob with assist of 1 to the commode then the chair. Did own oral care and currently wants to wait to eat breakfast. Call luis in reach. Plan of care reviewed.
--- NOTE | 2023-06-11 11:00 | PTCARENOTE ---
Worked with physical therapy and ambulated in the [place]uniga. Clarified with Dr. Calvin- pt can do stairs and can use arms if needed but would prefer her to focus on using her legs to transfer as to avoid too much pressure on the pectoralis muscle.
Currently resting back in bed. Expressed that she felt good walking. Family at beside. Voiding in the commode. Breast flap sites unchanged
[2023-06-11] MEDS: FLUSH (NSS) 1 FLUSH IV ×2 (12:22→18:09)
--- NOTE | 2023-06-11 13:15 | PTCARENOTE ---
Ate lunch. Pt then assisted into the bathroom to urinate. After assisted back to bed and complete CHG bath given. Breast flap checks unchanged. ABD binder readjsted and new ABD's placed over abd and breast incisions under abd binder. All incisions
are approximated. Pt states she feels good and wants to take a nap. Will monitor.
--- NOTE | 2023-06-11 14:49 | CM ---
CM following re: discharge planning.
Discussed in Rounds, reviewed pt's chart. Per Rounds meeting, pt doing well postop and probably will be discharged tomorrow.
[facility] liaison is aware of pt's potential discharge tomorrow and [facility]N visit will be scheduled for Wednesday
Please fax discharge instructions to [facility] at [phone]
D/C plan: home on Wednesday06/12/23 with [facility] and family support
CM will follow wit discharge plan updates as hospitalization progresses
--- NOTE | 2023-06-11 16:35 | PTCARENOTE ---
Back oob to the bathroom. States she feels like soon she will have a BM. Is passing flatus. Breast/paddle checks are unchanged. (+) signals. [place] and wm to touch. Ecchymosis improving. Swelling remains but lessened. Respirs are unlabored. RA sats
are 96%. Monitor SR. VS as documented. Voiding in the toilet. Admits to 5/10 Breast soreness- Remedicated with Tramadol 100 mg po for breast soreness. Also admits to a headache but says it is better than earlier. Currently resting back oob in the
chair.
[2023-06-11] MEDS: LOVENOX 40 MG SC (18:08)
--- NOTE | 2023-06-11 18:30 | PTCARENOTE ---
Good appetite for dinner. No BM yet. Informed her to let us know if she wants something else for her bowels. Of note on her R breast- not the flap but near the flap on a previously ecchymotic area there is a small blister formation. Paddles are warm
and signals/ color good. Will update Dr. Calvin. No other changes. Remains oob.
--- NOTE | 2023-06-11 21:37 | PTCARENOTE ---
1900: Handoff report received from off going RN. Dual RN breast paddle completed. Doppler pulses to b/l paddle is good, skin is warm. Right breast has mild ecchymosis with a blister. Abd pads are intact and dry. lower abdominal incision is cdi and
approximated. Abdominal pads and binder are in use. Bilateral breast RACQUEL and lower abd RACQUEL drains are intact and draining serosanguineous output. Pt's OOb to chair. Spouse at the bedside.
[id number]: Patient assisted out of the chair to the bathroom. The patient had a medium BM. Pt's AAOx4 and pleasant. Plan of care for the remainder of the shift reviewed with the patient. Sinus rhythm on the monitor. Pt's afebrile. Diminished breath
sounds to bases. SpO2 at 96% on room air. IS max at 1750 ml. Patient encouraged to continue using IS. +BS. Protective sacral foam is intact. Pt assisted back to bed. All needs are met at this time. Safety measures maintained. Bed in the lowest
position. Call luis and personal belongings are within reach.
[2023-06-11] MEDS: COZAAR 50 MG PO (22:01)
[2023-06-11] MEDS: TRILEPTAL 150 MG PO (22:02)
[2023-06-12] VITALS (8 sets, daily range): BP systolic 108–156; BP diastolic 68–99; BMI 31.3
--- NOTE | 2023-06-12 00:27 | PTCARENOTE ---
Patient reassessed. Hero drains to bulb suction and continued to drain serosang. output. Drains stripped. Pt asleep between care but arouses to voice commands. VSS. Safety measures continued. NO changes from the previous assessment.
[2023-06-12 03:28] LABS: Hematocrit 24.6 % (37.0-47.0); Hemoglobin 8.5 g/dL (12.0-16.0); Mean Corp Hgb Conc. 34.6 g/dL (33.0-37.0); Mean Corpuscular Hgb 29.2 pg (27.0-31.0); Mean Corpuscular Volume 84.5 fL (81.0-99.0); Mean Platelet Volume 9.2 fL (7.4-10.4); Platelet Count 242 10^3/uL (130-400); Red Blood Cell Count 2.91 10^6/uL (4.20-5.40); Red Cell Dist. Width 12.1 % (11.5-14.5); White Blood Cell Count 6.7 10^3/uL (4.8-10.8)
[2023-06-12 03:42] LABS: Blood Urea Nitrogen 13 mg/dl (7-17); Calcium 8.3 mg/dl (8.4-10.2); Carbon Dioxide 27 mmol/L (22-30); Chloride 103 mmol/L (98-107); Estimated Creatinine Clearance > 125 ml/min; Glucose 93 mg/dl (70-99); Potassium 3.9 mmol/L (3.5-5.1); Sodium 134 mmol/L (135-145); eGFR > 60.00
[2023-06-12] MEDS: ULTRAM 100 MG PO ×2 (04:16→08:24)
--- NOTE | 2023-06-12 04:23 | PTCARENOTE ---
Patient reassessed. c/o 4-5/10 pain to her lower abdomen and breast. PRN tramadol administered. multiple warm blankets applied and room temperature increased for chills. Temp 98.9. VSS. All needs are met at this time. call luis is within reach.
[2023-06-12] MEDS: TORADOL 15 MG IV (06:05)
--- NOTE | 2023-06-12 07:15 | W.PN.INTV ---
Today's Communication / Plan
Recommendations
Doing well postop, stable
Discharge planning per team
Assessment
-
Patient is a 48-year-old female with previous history of left breast cancer status post bilateral mastectomies presenting for elective breast reconstruction. Underwent reconstruction with flap 06/09/2023 and postoperatively admitted to ICU for
frequent vascular monitoring of transplant.
Elective breast reconstruction s/p Removal of bilateral tissue expanders; Bilateral partial capsulectomies and extensive capsulotomies; Bilateral breast reconstruction with LON flaps
Bilateral internal mammary lymph node biopsies Dr Calvin 06/10/23
Postop anemia
Postop atelectasis
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
Malignant neoplasm of L breast
�ILC G2 [id number] ER/ND positive HER2 neg Ki-67 5%
s/p bilateral mastectomies, left sentinel lymph node mapping and biopsy and reconstruction with Dr. Calvin 05/12/23
Obesity BMI 31.5
HTN
Plan
S/p breast reconstruction by plastic surgery POD #3
Observe overnight following procedure
Follow CBC, neurovascular checks
Follow q1 blood flow monitoring to flap--requiring intensive monitoring post procedure
Notify surgical team if compromised
Avoid pressors
Bolus IVFs for hypotension
Pain control via PATIENT SITTER
Encouraged patient use prior to movement/PT
No prior h/o lung disease, nonsmoker
CXR with no acute disease/postop atelectasis noted
Encouraged IS, sats are stable on room air
Restart diet per protocol/advance as tolerated
GI ppx if indicated/history of GERD
DVT ppx held, SCDs
Creat at baseline, follow UO
No signs/symptoms suspicious for infectious etiology at this time.
Periop abx on board
Can likely observe off antibiotics if no longer indicated
Encourage OOB, early mobility
PT/OT
Incentive spirometer encouraged to prevent postoperative atelectasis
DVT ppx as indicated postop
SCDs
Monitor 48 hours, frequent vascular checks
Doing well
Diagnostic Data
Chest X-Ray: 06/10/23- Left basilar subsegmental atelectasis.
CT Scan: AP lung windows- LOWER CHEST: Lung bases clear. No pleural effusion. Partially imaged expanded within the inferior right chest wall with some surrounding fluid.
Echo:
PFT's:
Reports and relevant images were personally reviewed.
-----
Critical Care time 32 mins -- The patient is admitted for acute critical illness for the treatment of vital organ failure and/or prevention of further life-threatening conditions. Total care includes time spent in review of history, physical exam,
medications, hemodynamic/ventilator parameters, laboratory data, imaging and discussion with house staff, pharmacy, respiratory therapy, technical coordinator, and nursing.
Subjective Dataa
Subjective Data
Date of Service:
Date of Service: June 12, 2023
Chief Complaint: Flarer Follow Up
Subjective:
no complaints, wants to go home
avss
Objective Data
Data Reviewed
Vital Signs / I&O / Oxygen:
Vital Signs
Temp Pulse Resp BP Pulse Ox
98.7 F 98 18 156/93 96
06/12/23 03:00 06/12/23 06:00 06/12/23 06:00 06/12/23 06:00 06/12/23 06:00
Intake and Output
06/11/23 06/12/23 06/13/23
06:59 06:59 07:59
Intake Total 2605 / 2605 1400 / 1400
Output Total 1798 / 1798 758 / 758
Balance 807 / 807 642 / 642
SaO2 96
Nasal Cannula flow liters per 2
minute
Physical Exam
General: Comfortable and Other (NAD)
HEENT: Normocephalic, Anicteric and Moist Mucous Membranes
Cardiovascular: S1-S2 and Regular Rhythm
Respiratory: Clear and Non-Labored Respirations
GI: Soft, Non Distended and Tender (at incision)
Neurology: Awake, Alert, Oriented, AO x 3 and No Motor Deficits
Skin: Warm, Dry and Good Color
Labs/Micro/Reports
Lab Data
06/12/23 03:09
06/12/23 03:09
Microbiology
06/09/23 12:30 Breast - Right Anaerobic Culture - Preliminary
Culture pending. Anaerobic cultures are examined after 3
days incubation. Additional information to follow.
06/09/23 12:30 Breast - Right Wound Culture - Preliminary
No growth
06/09/23 12:30 Breast - Right Gram Stain - Preliminary
--- NOTE | 2023-06-12 08:08 | W.PN.PLAS ---
Today's Communication
-
Discharge to home with visiting nurse
Follow-up on Wednesday
Progress Note
Subjective Data
Doing well, denies shortness of breath, ready to be discharged home
Subjective: Tolerating Regular Diet and Ambulatory
Objective Data
Vital Signs
Temp Pulse Resp BP Pulse Ox
98.1 F 98 18 156/93 96
06/12/23 07:52 06/12/23 06:00 06/12/23 06:00 06/12/23 06:00 06/12/23 06:00
Intake and Output
06/11/23 06/12/23 06/13/23
06:59 06:59 07:59
Intake Total 2605 / 2605 1400 / 1400
Output Total 1798 / 1798 758 / 758
Balance 807 / 807 642 / 642
Intake:
Oral fluids 1780 / 1780 1400 / 1400
IV fluids (Total) 625 / 625
Lr 1,000 ml @ 125 mls/hr IV . 625 / 625
Q8H [facility] Rx#:[id number]
IV piggybacks 200 / 200
Output:
Drain Output (Total) 368 / 368 208 / 208
Left Lower Abdomen B 65 / 65 42 / 42
Left Lower Breast A 120 / 120 65 / 65
Right Lower Abdomen D 150 / 150 90 / 90
Right Lower Breast C 33 / 33 11 / 11
Urine, Lopez 405 / 405
Urine, Voided 1025 / 1025 550 / 550
Other:
Number of approximated MODERATE 1
amounts of urine
Number of approximated LARGE 1
amounts of urine
Physical exam:
No acute distress
No increased work of breathing
Bilateral breast flaps warm and well-perfused in appearance
Doppler signals intact arterial and venous bilaterally
Appropriate cap refill no evidence of venous congestion
Routine incisional healing
RACQUEL drain serosanguineous with appropriate output
Lab Results
06/12/23 03:09
06/12/23 03:09
Microbiology Results
06/09/23 12:30 Breast - Right Anaerobic Culture - Preliminary
Culture pending. Anaerobic cultures are examined after 3
days incubation. Additional information to follow.
06/09/23 12:30 Breast - Right Wound Culture - Preliminary
No growth
06/09/23 12:30 Breast - Right Gram Stain - Preliminary
Assessment / Plan
Status post bilateral tissue informatics spec removal with delayed immediate LON flap reconstruction of the bilateral breasts, history of breast cancer
Anemia secondary to hemodilution and postsurgical blood loss. No evidence of ongoing bleeding.
Lopez out
Multimodal oral pain control
Regular diet
Lovenox/SCDs
Out of bed to ambulate
PT OT
Continue every hour flap checks for 48 hours postop, then every 4 hour flap checks until discharge
--- NOTE | 2023-06-12 08:16 | W.DCSUMMARY ---
Discharge Summary
Discharge Data
Date of Admission: 06/09/23
Date of Discharge: 06/12/23
-
Pending Results: No
Hospital Course
Patient was admitted following D IEP flap reconstruction to the ICU for every hour flap monitoring. She followed a routine postoperative course. Lopez was removed, diet was advanced, pain was controlled on oral medications. She reported physical
therapy and was able to ambulate. On postoperative day 3 she was discharged to home with visiting nurse and close follow-up.
Discharge Plan
-
Patient Disposition: Home (Routine Discharge)
Discharge Diagnosis/Procedures: Status post bilateral D IEP flap reconstruction
Condition: Good
Diet: No restrictions
Activity: No strenuous activity
Additional Activity: No heavy lifting greater than 10 pounds
Driving Restrictions: Not until seen by your Dr
Bathing Restrictions: OK to Shower
Other Services: [facility]
Wound Care: Aquaphor to incisions and any skin blisters
Referrals:
Milan Calvin MD [Family Provider] -
Prescriptions:
New
docusate sodium 100 mg tablet
100 mg PO BID Qty: 14 0RF
tramadol 50 mg Tablet
50 - 100 mg PO Q6HPRN PRN (Reason: mild pain) 14 Days Qty: 30 0RF
diazepam 5 mg Tablet
5 mg PO TIDPRN PRN (Reason: Muscle Spasms) 14 Days Qty: 21 1RF
Continued
losartan 50 mg Tablet
50 mg PO HS
Mounjaro 2.5 mg/0.5 mL Pen Injector
2.5 mg SC QWEEK
acetaminophen [Pain Relief ES (acetaminophen)] 500 mg tablet
1,000 mg PO Q6
gabapentin 100 mg capsule
100 mg PO TID
oxcarbazepine 150 mg tablet
150 mg PO HS
Rx Instructions:
PER PATIENT TAKES ONCE DAILY AT BEDTIME
Discontinued
cefadroxil 500 mg capsule
500 mg PO BID
Discharge Orders:
Discharge Patient (As Directed); Ordered 06/12/23
Ordered By: Milan Calvin
[2023-06-12] MEDS: SENOKOT 8.59999999999999964 MG PO (08:23)
[2023-06-12] MEDS: NEURONTIN 300 MG PO (08:23)
[2023-06-12] MEDS: COLACE 100 MG PO (08:23)
[2023-06-12] MEDS: TYLENOL 1000 MG PO (08:23)
[2023-06-12] MEDS: TORADOL IV (08:24)
--- NOTE | 2023-06-12 09:26 | PTCARENOTE ---
Received pt this am in bed without complaint. Wounds/paddles evaluated at change of shift with previous nurse. Dr Calvin in to see pt this morning and remove from monitor in plans for discharge. IV sites removed, pt medicated as charted.
Assisted pt to get dressed, she had pillow for drains and was discharged via wheelchair to in car. No questions regarding discharge instructions. Pt wasn't sure she had a refill on gabapentin but was going to discuss with Dr Calvin at her
appointment on Wednesday.
--- NOTE | 2023-06-12 10:51 | CM ---
CM following re: discharge planning.
Reviewed pt's chart.
Discharge order is noted. Pt is aware, expressed her agreement with discharge.
Please fax discharge instructions to [facility] at [phone]
D/C plan: home today with [facility] and family support
== END 2023-06-12 09:12 | disposition home health service (06) | DRG 580 ==
LOC: ICU 06:04
PROVIDERS: Nurse Practitioner Family; ADMITTING PHYSICIAN Surgery Plastic and Reconstructive Surgery
PROC: 07B80ZX Excision of Right Internal Mammary Lymphatic, Open Approach, Diagnostic (ICD-10-PCS; 2023-06-09)
PROC: 07B90ZX Excision of Left Internal Mammary Lymphatic, Open Approach, Diagnostic (ICD-10-PCS; 2023-06-09)
PROC: 0HRV077 Replacement of Bilateral Breast using Deep Inferior Epigastric Artery Perforator Flap, Open Approach (ICD-10-PCS; 2023-06-09)
PROC: 0HPT0NZ Removal of Tissue Expander from Right Breast, Open Approach (ICD-10-PCS; 2023-06-09)
PROC: 0HPU0NZ Removal of Tissue Expander from Left Breast, Open Approach (ICD-10-PCS; 2023-06-09)
DX: Z42.1 Encounter for breast reconstruction following mastectomy (principal); D62 Acute posthemorrhagic anemia; J98.11 Atelectasis; Z85.3 Personal history of malignant neoplasm of breast; E66.9 Obesity, unspecified; I10 Essential (primary) hypertension; I95.9 Hypotension, unspecified; K21.9 Gastro-esophageal reflux disease without esophagitis; M62.08 Separation of muscle (nontraumatic), other site; Z68.31 Body mass index [BMI] 31.0-31.9, adult
CPT/HCPCS: 88304; 88305; 71045; 80048; 80053; 85014; 85018; 85027; 85610; 85730; 86850; 86900; 86901; 87070; 87075; 87205; 93005; 97163; A4648; C1729; C1781

== ENCOUNTER 2024-06-09 06:25 | Day surgery (SDC) | payer BC, SELFPAY | END 2024-06-09 17:00 | disposition home or self-care (01) | LOC: GI 06:25 | PROVIDERS: ATTENDING PHYSICIAN Internal Medicine Gastroenterology | DX: Z12.11 Encounter for screening for malignant neoplasm of colon (principal); K62.1 Rectal polyp; Z80.0 Family history of malignant neoplasm of digestive organs | CPT/HCPCS: 45380; 88305 ==